=== PATIENT | male | born 1980 | race Two or more races ===

== ENCOUNTER → 2017-01-16 | Outpatient (REF) | payer OTHER | LOC: M SMT 12:57 | PROVIDERS: ATTEND Urology | DX: Z30.2 Encounter for sterilization (principal) ==

== ENCOUNTER → 2017-09-29 | Outpatient (REF) | payer OTHER ==
[2017-09-29 09:34] LABS: SPERM ABNORMAL FORMS WBC'S NOTED
[2017-09-29 09:35] LABS: IMMMOTILE SPERM CENTRIFUGED ABSENT (ABSENT); IMMOTILE SPERM ABSENT (ABSENT); MOTILE SPERM ABSENT (ABSENT); MOTILE SPERM CENTRIFUGED ABSENT (ABSENT)
== END ==
LOC: M SMT 09:16
PROVIDERS: ATTEND Urology
DX: Z30.2 Encounter for sterilization (principal)

== ENCOUNTER 2017-12-26 14:33 | Emergency (ER) | payer OTHER ==
[2017-12-26 15:40] LABS: INFLUENZA A AMPLIFICATION NEGATIVE (NEGATIVE); INFLUENZA B AMPLIFICATION NEGATIVE (NEGATIVE)
[2017-12-26] MEDS: ONDANSETRON 4 MG ORAL DISINTEGRATING TAB (S0181) PO (17:17)
== END 2017-12-26 17:23 | disposition home or self-care (01) ==
LOC: M ED 14:33
DX: R11.2 Nausea with vomiting, unspecified (principal); R19.7 Diarrhea, unspecified; Z98.890 Other specified postprocedural states
CPT/HCPCS: 87502